=== PATIENT | female | born 1990 | race American Indian/Alaskan Native ===

== ENCOUNTER 2021-11-01 16:05 | Emergency (ER) | payer MEDICAID ==
[2021-11-01 19:33] VITALS: BP 126/70
== END 2021-11-02 09:40 | disposition left against medical advice (07) ==
LOC: ED 16:05
DX: R07.89 Other chest pain (principal); Z53.21 Procedure and treatment not carried out due to patient leaving prior to being seen by health care provider

== ENCOUNTER 2021-11-01 17:28 | Emergency (ER) | payer MEDICAID, OTHER ==
[2021-11-01] MEDS ORDERED: KETOROLAC 10 MG TAB PO ONE (20:44)
[2021-11-01] MEDS ORDERED: CYCLOBENZAPRINE 10 MG TAB PO ONE (20:45)
[2021-11-01] MEDS ORDERED: predniSONE 20 MG TAB PO ONE (20:46)
--- NOTE | 2021-11-01 21:08 | XRay Report ---
CHEST 2 VIEWS INDICATION / CLINICAL INFORMATION: pain. COMPARISON: None available. FINDINGS: SUPPORT DEVICES: None. HEART / MEDIASTINUM: No significant abnormality. LUNGS / PLEURA: No significant pulmonary or pleural abnormality. No pneumothorax. ADDITIONAL FINDINGS: No significant additional findings. IMPRESSION: 1. No acute findings. Signer Name: Gallo Curry MD Signed: 11/01/2021 9:03 PM Workstation Name: [id number]
--- NOTE | 2021-11-01 21:17 | Emergency Department Report ---
ED Neck Pain/Injury HPI - General Stated Complaint: SHARP CHEST PAINS Time Seen by Provider: 11/01/21 20:41 - History of Present Illness Initial Comments: 31-year-old black female with a past medical history of asthma and bronchitis presents to the emergency department for evaluation of 2-week history of worsening neck pain. She states that neck pain started out in the center of her neck and radiated to her right shoulder but for the past couple of days pain has radiated to the left shoulder down to her left arm. She describes the pain as a deep aching with intermittent numbness and tingling. She denies injury. She states that sometimes when she moves her neck, she can feel the pain into her right scapular area and it feels like the muscles in her chest are strained. She denies fever shortness of breath nausea vomiting dizziness diaphoresis. MD Complaint: neck pain, upper back pain -: Gradual, week(s) (2) Place: home Radiation: right lateral, left lateral, right shoulder, left shoulder, upper back, left upper extremity Severity: severe, intermittent Severity scale (0 -10): 9 Quality: burning, aching Consistency: intermittent Improves With: other (Certain movements) Worsens With: movement of extremity Context: unknown Associated Symptoms: numbness (Intermittently going down first the right arm and now the left arm), tingling. denies: headache, fever, weakness, difficulty swallowing, nausea, vomiting Treatments Prior to Arrival: none - Related Data Previous Rx's Medication Instructions Recorded Last Taken Type Ibuprofen [Motrin 600 MG tab] 600 mg PO Q8H PRN #30 tablet 10/11/15 Unknown Rx Cyclobenzaprine [Flexeril] 10 mg PO TID PRN #20 tablet 11/17/15 Unknown Rx Ibuprofen [Motrin 800 MG tab] 800 mg PO Q8HR PRN #30 tablet 11/17/15 Unknown Rx Cyclobenzaprine [Flexeril] 10 mg PO TID PRN #21 tab 11/01/21 Unknown Rx Naproxen [Naprosyn] 500 mg PO BID #14 tab 11/01/21 Unknown Rx prednisoLONE [Millipred 5mg (6 day 5 mg PO QDAY #1 pack 11/01/21 Unknown Rx 21 tab dosepak)] Allergies Allergy/AdvReac Type Severity Reaction Status Date / Time No Known Allergies Allergy Unverified 10/09/15 15:59 ED Review of Systems ROS: Stated complaint: SHARP CHEST PAINS Other details as noted in HPI Comment: All other systems reviewed and negative Constitutional: denies: chills, diaphoresis, fever, weakness Eyes: denies: eye pain ENT: denies: ear pain, throat pain, congestion Respiratory: denies: cough, shortness of breath, wheezing Cardiovascular: denies: chest pain, palpitations, dyspnea on exertion, edema, syncope, paroxysmal nocturnal dyspnea Endocrine: denies: no symptoms reported Gastrointestinal: denies: abdominal pain, nausea, vomiting, diarrhea, constipation, hematemesis, melena, hematochezia Musculoskeletal: back pain. denies: joint swelling, arthralgia Skin: denies: rash, lesions Neurological: denies: headache, weakness, numbness, paresthesias Psychiatric: denies: anxiety ED Past Medical Hx - Past Medical History Hx Asthma: Yes - Surgical History Additional Surgical History: - Social History Smoking Status: Current Every Day Smoker Substance Use Type: None - Medications Home Medications: Home Medications Medication Instructions Recorded Confirmed Last Taken Type Ibuprofen [Motrin 600 MG tab] 600 mg PO Q8H PRN #30 tablet 10/11/15 Unknown Rx Cyclobenzaprine [Flexeril] 10 mg PO TID PRN #20 tablet 11/17/15 Unknown Rx Ibuprofen [Motrin 800 MG tab] 800 mg PO Q8HR PRN #30 tablet 11/17/15 Unknown Rx Cyclobenzaprine [Flexeril] 10 mg PO TID PRN #21 tab 11/01/21 Unknown Rx Naproxen [Naprosyn] 500 mg PO BID #14 tab 11/01/21 Unknown Rx prednisoLONE [Millipred 5mg (6 day 5 mg PO QDAY #1 pack 11/01/21 Unknown Rx 21 tab dosepak)] ED Physical Exam - General Limitations: No Limitations General appearance: alert, in no apparent distress - Head Head exam: Present: atraumatic, normocephalic - Eye Eye exam: Present: normal appearance. Absent: conjunctival injection - ENT ENT exam: Present: normal exam - Neck Neck exam: Present: normal inspection, tenderness (To bilateral sides of neck. Worse with movement.). Absent: full ROM, lymphadenopathy - Expanded Neck Exam Expanded Neck exam: Absent: midline deformity, anterior neck swelling - Respiratory Respiratory exam: Present: normal lung sounds bilaterally, chest wall tenderness (Intermittent worse with movement and palpation). Absent: respiratory distress, wheezes, accessory muscle use - Cardiovascular Cardiovascular Exam: Present: regular rate, normal heart sounds - GI/Abdominal GI/Abdominal exam: Present: soft, normal bowel sounds. Absent: distended, tenderness, guarding - Extremities Exam Extremities exam: Present: normal inspection, full ROM. Absent: pedal edema, joint swelling, calf tenderness - Back Exam Back exam: Present: normal inspection, full ROM, tenderness (To bilateral thoracic area). Absent: CVA tenderness (R), CVA tenderness (L) - Neurological Exam Neurological exam: Present: alert, oriented X3 - Psychiatric Psychiatric exam: Present: normal affect, normal mood - Skin Skin exam: Present: warm, dry, intact, normal color ED Course Vital Signs 11/01/21 21:52 Temperature 98.1 F Pulse Rate 77 Respiratory 18 Rate Blood Pressure 122/75 [Right] O2 Sat by Pulse 99 Oximetry ED Medical Decision Making - Radiology Data Radiology results: report reviewed, image reviewed Chest x-ray without any acute abnormalities noted. - Medical Decision Making 31-year-old black female with a past medical history of asthma and bronchitis presents to the emergency department for evaluation of 2-week history of worsening neck pain. She states that neck pain started out in the center of her neck and radiated to her right shoulder but for the past couple of days pain has radiated to the left shoulder down to her left arm. She describes the pain as a deep aching with intermittent numbness and tingling. She denies injury. She states that sometimes when she moves her neck, she can feel the pain into her right scapular area and it feels like the muscles in her chest are strained. She denies fever shortness of breath nausea vomiting dizziness diaphoresis. Chest x-ray without any acute abnormality is noted. Pain description and assessment consistent with cervical radicular pain. Patient was medicated in ER with prednisone Toradol and Flexeril. She stated that pain has increased. She will be sent home with treatment for cervical radicular pain to include Medrol Dosepak to be taken as directed naproxen twice a day for 7 days and as needed Flexeril. She was advised to take medicines as prescribed and follow-up with primary care provider if no improvement or worsening symptoms. Plan was discussed with patient she verbalized understanding of and agreement with plan of care. Critical care attestation.: If time is entered above; I have spent that time in minutes in the direct care of this critically ill patient, excluding procedure time. ED Disposition Clinical Impression: Cervical radicular pain Disposition: 01 HOME / SELF CARE / HOMELESS Is pt being admited?: No Does the pt Need Aspirin: No Condition: Stable Instructions: Cervical Radiculopathy Additional Instructions: Take medications as prescribed. Follow-up with primary care provider if no improvement or worsening symptoms. Prescriptions: Cyclobenzaprine [Flexeril] 10 mg PO TID PRN #21 tab PRN Reason: Muscle Spasm prednisoLONE [Millipred 5mg (6 day 21 tab dosepak)] 5 mg PO QDAY #1 pack Naproxen [Naprosyn] 500 mg PO BID #14 tab Referrals: JAKOB HUNT MD [Referring] - 3-5 Days Forms: Work/School Release Form Time of Disposition: 21:17
[2021-11-01 21:55] VITALS: BP 122/75
== END 2021-11-03 18:47 | disposition home or self-care (01) ==
LOC: ED 17:28
DX: M54.12 Radiculopathy, cervical region (principal); Z98.890 Other specified postprocedural states; F17.200 Nicotine dependence, unspecified, uncomplicated
CPT/HCPCS: 71046; 99283